=== PATIENT | female | born 2005 | race Hispanic/Latino ===

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

== ENCOUNTER 2024-03-09 13:18 | Emergency (ER) | payer SELFPAY ==
[~2024-03-09] VITALS: Ht 162.6 cm; Wt 59.9 kg
[2024-03-09 13:49] VITALS: PULSE 86; RESP 18; TEMP 98.2; O2SAT 100
== END 2024-03-09 14:27 | disposition home or self-care (01) ==
LOC: ER 14:04
DX: S06.0X0A Concussion without loss of consciousness, initial encounter (principal); R51.9 Headache, unspecified; W20.8XXA Other cause of strike by thrown, projected or falling object, initial encounter; Y92.89 Other specified places as the place of occurrence of the external cause
CPT/HCPCS: 99282